=== PATIENT | male | born 1950 | race Caucasian/White ===

== ENCOUNTER → 2017-12-09 | Outpatient (CLI) | payer OTHER ==
[~2017-12-09] MED LIST: "\\\"BP MED\\\""; "\\\"CHOLESTEROL MED\\\""; ASMANEX HFA13 GM INH; ASPIRIN81 M1 PO; Accuneb 0.1.25 MG/3 INH; COLACE20 MG/5 ML PO; COREG3.125 MG PO; LIPITOR80 MG PO; PLAVIX75 MG PO; PROAIR HFA8.5 GM INH; TERAZOSIN5 MG PO; ZOCOR80 MG PO
--- NOTE | ~2017-12-09 | ST ---
[place], [place] EXERCISE STRESS TEST REPORT NAME: TICO ÁLVAREZ UNIT #: [id number] ROOM: DOCTOR: CHET CAMPBELL MD BIRTHDATE: [birth year] DOS: 12/09/2017 EXERCISE/PHARMACOLOGIC STRESS TEST REFERRING PHYSICIAN: MERCEDEZ Zambrano INDICATIONS: History of coronary artery disease, chest discomfort. PROCEDURE: The patient began the test by walking on a full Rahul protocol treadmill for 2 minutes and 48 seconds. At that point, he became very breathless and fatigued and could not continue. He had not achieved a diagnostic heart rate at that point and therefore the test was changed to a pharmacologic study. He was allowed to continue walking; however, the belt was leveled and slowed. He was then given a rapid infusion of regadenoson 0.4 mg intravenously, followed by a saline flush, 40 seconds later he was given radionuclide intravenously. His resting heart rate of 60 joshua to a peak of 87. The resting blood pressure of 120/64 joshua to 164/64. The patient became very breathless during exercise, but maintained normal oximetry with oxygen saturations between 94 and 95%. The patient's resting electrocardiogram showed sinus rhythm with probable biventricular hypertrophy. He did have increased voltage in the inferior leads with ST segment depression and T-wave inversions along with voltage criteria for left bundle-branch block and secondary ST changes at rest. No diagnostic changes occurred with the infusion. IMPRESSION: 1. Poor exercise capacity. 2. Well tolerated infusion of regadenoson. 3. Radionuclide administered. Please see the separate imaging report for further details of the patient's stress test results. CHET CAMPBELL MD CM:STRESS:EXERCISE STRESS TEST REPORT [id number] CHET CAMPBELL MD
== END | disposition home or self-care (01) ==
LOC: CARD 00:19
DX: I25.118 Atherosclerotic heart disease of native coronary artery with other forms of angina pectoris (principal)

== ENCOUNTER 2019-01-05 09:56 | Inpatient (IN) | payer OTHER ==
[2019-01-05] VITALS (8 sets, daily range): BP systolic 96–158; BP diastolic 48–65
[~2019-01-05] VITALS: Ht 172.7 cm; Wt 68.5 kg
--- NOTE | ~2019-01-05 | EKG ---
[place], [place] ELECTROCARDIOGRAM REPORT NAME: TICO ÁLVAREZ UNIT #: [id number] ROOM: 407 DOCTOR: EPIPHANY DRAFT REPORT BIRTHDATE: [birth year] [facility] Test Date: 2019-01-05 Test Time: 19:04:22 Pat Name: TICO ÁLVAREZ Department: Room: 407 2 Gender: M Electrician'S Helper: Pushpa Cowan : 1950 Requested By: COMPA LE Order Number: [id number] Reading MD: Compa Le MD Measurements Intervals [place] Rate: 61 P: 43 KS: 128 QRS: 10 QRSD: 91 T: 168 QT: 416 QTc: 419 Interpretive Statements Sinus rhythm Probable anteroseptal infarct, recent Lateral leads are also involved No previous ECG available for comparison Electronically Signed On 01-06-2019 15:32:41 PDT by Compa Le MD CM:EKGRPT:ELECTROCARDIOGRAM REPORT [id number] COMPA LE MD EPIPHANY DRAFT REPORT COMPA LE MD
--- NOTE | ~2019-01-05 | PR ---
[place], [place] PROGRESS NOTE [id number] UNIT #: [id number] ROOM: 407 DOCTOR: TERESA ALLAN MD BIRTHDATE: [birth year] DOS: 01/09/2019 CARDIOLOGY NOTE REASON FOR VISIT: Cardiomyopathy and coronary artery disease. CLINICAL HISTORY: The patient is feeling better. He would like to go home today. He just fit in with a LifeVest. Denies any chest pain or shortness of breath. No PND, no orthopnea, no palpitation, no dizziness, no syncope, no palpitations. No nausea, vomiting or diarrhea. No neurologic symptoms. No genitourinary symptoms. REVIEW OF SYSTEMS: Review of the 10 system negative except as mentioned above. RHYTHM STRIPS: The patient was in sinus rhythm. PHYSICAL EXAMINATION: VITAL SIGNS: Blood pressure 121/49, pulse 52, respiratory rate was 20, weight 60.4 kilos. GENERAL: Alert, comfortable, in no acute distress. EYES: Pupils are round and equal. No jaundice. HEAD AND NECK: Neck is supple. No distended neck veins, no carotid bruit. CHEST: Symmetrical, nontender. LUNGS: Clear to auscultation bilaterally. HEART: Regular rhythm, no S3, no palpable thrills. The patient is wearing a LifeVest. ABDOMEN: Benign, nontender. Bowel sounds normal. EXTREMITIES: Showed no edema. Distal pulses palpable. SKIN: Warm and dry. No cyanosis, no clubbing. RECTAL: Deferred. GENITOURINARY: Deferred. NEUROLOGIC: The patient is alert, oriented. No focal neurologic deficit. MEDICATIONS AND ALLERGIES: Reviewed. IMPRESSION: 1. Chest pain, stable, no further chest pain. The patient had a nonischemic stress test on 01/06/2019. 2. Coronary artery disease, status post left anterior descending stent in around 2013. 3. Left ventricular dysfunction, ejection fraction 30% by recent testing. 4. Tobacco smoking. 5. Sinus bradycardia. RECOMMENDATIONS: 1. Decrease his beta-blockers and watch his heart rate and blood pressures. 2. The patient is fit in a LifeVest today. 3. Risk factor modification, especially to quit smoking and low salt diet was discussed. 4. The patient would like to go home today and he can go home on current [place], [place] PROGRESS NOTE NAME: TICO ÁLVAREZ UNIT #: [id number] ROOM: 407 DOCTOR: JERRELL LOPEZ,TERESA BIRTHDATE: [birth year] medications and to follow up with Dr. Bolaños, one of our cardiologists in 1-2 weeks. Above treatment discussed with the patient and his family at bedside and all questions answered. He will be scheduled for outpatient viability test. TERESA ALLAN MD CM:PNTRANS [id number] TERESA ALLAN MD 01/10/19 0649 interface
--- NOTE | ~2019-01-05 | EKG ---
[place], [place] ELECTROCARDIOGRAM REPORT NAME: TICO ÁLVAREZ UNIT #: [id number] ROOM: 407 DOCTOR: DEBBIE DRAFT REPORT BIRTHDATE: [birth year] [facility] Test Date: 2019-01-05 Test Time: 09:59:40 Pat Name: TICO ÁLVAREZ Department: Room: 407 Gender: M Public Health Internship: : 1950 Requested By: KATIA HAINES Order Number: [id number] Reading MD: Stevan Bolaños MD Measurements Intervals [place] Rate: 45 P: 53 MN: 139 QRS: 4 QRSD: 88 T: 196 QT: 485 QTc: 420 Interpretive Statements Sinus bradycardia Anteroseptal infarct, age indeterminate Repol abnrm, severe global ischemia (LM/MVD) No previous ECG available for comparison Electronically Signed On 01-06-2019 15:27:16 PDT by Stevan Bolaños MD CM:EKGRPT:ELECTROCARDIOGRAM REPORT [id number] KATIA MASON DRAFT REPORT KATIA HAINES DO
--- NOTE | ~2019-01-05 | EKG ---
[place], [place] ELECTROCARDIOGRAM REPORT NAME: TICO ÁLVAREZ UNIT #: [id number] ROOM: 407 DOCTOR: DEBBIE DRAFT REPORT BIRTHDATE: [birth year] [facility] Test Date: 2019-01-05 Test Time: 12:46:55 Pat Name: TICO ÁLVAREZ Department: Room: 407 Gender: M Device Repair Technician: PRISCILLA : 1950 Requested By: KATIA HAINES Order Number: [id number] Reading MD: Stevna Bolaños MD Measurements Intervals [place] Rate: 53 P: 3 MA: 148 QRS: -16 QRSD: 90 T: 195 QT: 450 QTc: 423 Interpretive Statements Sinus rhythm Borderline left axis deviation lateral wall ischemia Repol abnrm suggests ischemia, diffuse leads Electronically Signed On 01-06-2019 15:29:29 PDT by Stevan Bolaños MD CM:EKGRPT:ELECTROCARDIOGRAM REPORT [id number] KATIA MASON DRAFT REPORT KATIA HAINES DO
--- NOTE | ~2019-01-05 | EKG ---
[place], [place] ELECTROCARDIOGRAM REPORT NAME: TICO ÁLVAREZ UNIT #: [id number] ROOM: 407 DOCTOR: DEBBIE DRAFT REPORT BIRTHDATE: [birth year] [facility] Test Date: 2019-01-05 Test Time: 17:37:18 Pat Name: TICO ÁLVAREZ Department: Room: 407 Gender: M Regional Service Manager: Pushpa Cowan : 1950 Requested By: KATIA HAINES Order Number: [id number] Reading MD: Stevan Bolaños MD Measurements Intervals [place] Rate: 60 P: 34 [place]: 127 QRS: 14 QRSD: 96 T: 191 QT: 429 QTc: 429 Interpretive Statements Sinus rhythm Anteroseptal [place] age undetermined Repol abnrm suggests ischemia, diffuse leads Minimal ST elevation, anterior leads No previous ECG available for comparison Electronically Signed On 01-06-2019 15:31:58 PDT by Stevan Bolaños MD CM:EKGRPT:ELECTROCARDIOGRAM REPORT [id number] KATIA MASON DRAFT REPORT KATIA HAINES DO
[2019-01-05 10:15] LABS: BASO # 0.1 10*3/uL (0.0-0.1); BASO % 0.5 % (0.0-1.0); EOS # 0.4 10*3/uL (0.0-0.4); EOS % 3.4 % (1.0-4.0); HEMATOCRIT 41.5 % (42.0-52.0); HEMOGLOBIN 13.7 g/dl (14.0-18.0); LYMPH # 4.4 10*3/uL (1.3-4.4); MEAN CELL VOLUME 96.3 fl (80.0-94.0); MEAN CORPUSCULAR HGB 31.8 pg (27.0-31.0); MEAN PLATELET VOLUME 11.5 fl (9.6-12.3); MONO # 1.1 10*3/uL (0.1-1.0); MONO % 9.7 % (3.0-9.0); NEUT # 5.3 10*3/uL (2.3-7.9); PLATELET COUNT AUTOMATED 262 10*3/uL (130-400); RED BLOOD COUNT 4.31 10*6/uL (4.50-5.90); RED CELL DISTRI WIDTH 13.2 % (0-14.5); WHITE BLOOD COUNT 11.2 10*3/uL (4.8-10.8)
[2019-01-05 10:53] LABS: ACT PARTIAL THROMBO TIME 22.1 SECONDS (20.8-31.5); INTERNATIONAL NORM RATIO 1.1 (2.0-3.5)
[2019-01-05 11:12] LABS: ALBUMIN 3.2 gm/dl (3.1-4.5); ALKALINE PHOSPHATASE 92 U/L (45-117); BUN 14 mg/dl (7-24); CHLORIDE 106 mmol/L (98-107); CREATININE 1.15 mg/dL (0.70-1.30); POTASSIUM 4.1 mmol/L (3.5-5.1); SGOT/AST 13 IU/L (3-35); SGPT/ALT 17 U/L (12-78); SODIUM 139 mmol/L (136-145); TOTAL PROTEIN 6.9 gm/dL (6.4-8.2)
[2019-01-05 11:14] LABS: TROPONIN I 0.023 ng/ml (<0.045)
[2019-01-05] MEDS ORDERED: VIAGRA100 MG PO (15:22)
[2019-01-05] MEDS ORDERED: VITAMIN D32000 UNI1 PO (15:24)
[2019-01-05] MEDS ORDERED: VITAMIN B-12100 MCG PO (15:25)
[2019-01-05] MEDS ORDERED: CIMETIDINE300 MG PO (15:26)
[2019-01-05] MEDS ORDERED: ALLOPURINOL100 MG PO (15:30)
[2019-01-05] MEDS ORDERED: LISINOPRIL5 MG PO (15:30)
[2019-01-06] VITALS: BP 107/44
[2019-01-06 06:09] LABS: CHOLESTEROL 126 mg/dL (<200); HDL CHOLESTEROL 40 mg/dl (40-60); LDL CHOLESTEROL 62 mg/dL (9-159); TRIGLYCERIDES 120 mg/dl (<150); VLDL CHOLESTEROL 24 mg/dL (6-40)
[2019-01-06 06:11] LABS: ALKALINE PHOSPHATASE 91 U/L (45-117); BUN 16 mg/dl (7-24); CHLORIDE 106 mmol/L (98-107); CHOLESTEROL 127 mg/dL (<200); CREATININE 1.05 mg/dL (0.70-1.30); FREE T4 0.79 ng/dl (0.76-1.46); HDL CHOLESTEROL 42 mg/dl (40-60); LDL CHOLESTEROL 61 mg/dL (9-159); PHOSPHOROUS 3.6 mg/dL (2.5-4.9); POTASSIUM 3.9 mmol/L (3.5-5.1); SGOT/AST 13 IU/L (3-35); SGPT/ALT 16 U/L (12-78); SODIUM 141 mmol/L (136-145); TOTAL PROTEIN 6.7 gm/dL (6.4-8.2); TRIGLYCERIDES 120 mg/dl (<150); VLDL CHOLESTEROL 24 mg/dL (6-40)
[2019-01-06 06:15] LABS: THYROID STIM HORMONE (HS) 0.765 uIU/ml (0.358-4.75)
[2019-01-06 06:37] LABS: BASO % 0.3 % (0.0-1.0); EOS # 0.3 10*3/uL (0.0-0.4); HEMATOCRIT 40.2 % (42.0-52.0); LYMPH # 2.8 10*3/uL (1.3-4.4); LYMPH % 29.9 % (27.0-41.0); MEAN CELL VOLUME 96.6 fl (80.0-94.0); MEAN CORPUSCULAR HGB 31.3 pg (27.0-31.0); MEAN CORPUSCULAR HGB CONC 32.3 g/dl (33.0-37.0); MEAN PLATELET VOLUME 11.2 fl (9.6-12.3); MONO # 0.9 10*3/uL (0.1-1.0); MONO % 10.1 % (3.0-9.0); NEUT # 5.2 10*3/uL (2.3-7.9); NEUT % 56.2 % (47.0-73.0); PLATELET COUNT AUTOMATED 186 10*3/uL (130-400); RED BLOOD COUNT 4.16 10*6/uL (4.50-5.90); RED CELL DISTRI WIDTH 13.2 % (0-14.5); WHITE BLOOD COUNT 9.3 10*3/uL (4.8-10.8)
[2019-01-06 06:58] LABS: ACT PARTIAL THROMBO TIME 25.6 SECONDS (20.8-31.5); INTERNATIONAL NORM RATIO 1.1 (2.0-3.5)
[2019-01-06 07:17] LABS: VITAMIN D, 25-HYDROXY 39.1 ng/mL (30-100)
[2019-01-06 08:00] VITALS: BP 118/60
[2019-01-06 12:00] VITALS: BP 132/73
[2019-01-06 16:00] VITALS: BP 132/66
[2019-01-06 20:00] VITALS: BP 143/64
[2019-01-07] VITALS: BP 164/70
[2019-01-07 06:10] LABS: BUN 14 mg/dl (7-24); CHLORIDE 107 mmol/L (98-107); CREATININE 1.07 mg/dL (0.70-1.30); POTASSIUM 4.5 mmol/L (3.5-5.1); SODIUM 140 mmol/L (136-145)
[2019-01-07 12:00] VITALS: BP 123/60
[2019-01-07 16:00] VITALS: BP 130/64
[2019-01-07 20:00] VITALS: BP 134/66
[2019-01-08] VITALS: BP 145/70
[2019-01-08 08:00] VITALS: BP 115/59
[2019-01-08 12:00] VITALS: BP 119/54
[2019-01-08 16:00] VITALS: BP 116/53
[2019-01-08 20:00] VITALS: BP 129/64
[2019-01-09] VITALS: BP 121/49
[2019-01-09 06:58] LABS: BASO # 0.1 10*3/uL (0.0-0.1); BASO % 0.6 % (0.0-1.0); EOS # 0.3 10*3/uL (0.0-0.4); EOS % 3.2 % (1.0-4.0); HEMATOCRIT 41.7 % (42.0-52.0); HEMOGLOBIN 13.4 g/dl (14.0-18.0); LYMPH # 3.3 10*3/uL (1.3-4.4); LYMPH % 38.1 % (27.0-41.0); MEAN CORPUSCULAR HGB 31.2 pg (27.0-31.0); MEAN CORPUSCULAR HGB CONC 32.1 g/dl (33.0-37.0); MEAN PLATELET VOLUME 11.2 fl (9.6-12.3); MONO % 11.2 % (3.0-9.0); NEUT # 4.1 10*3/uL (2.3-7.9); NEUT % 46.6 % (47.0-73.0); PLATELET COUNT AUTOMATED 204 10*3/uL (130-400); RED CELL DISTRI WIDTH 13.2 % (0-14.5); WHITE BLOOD COUNT 8.7 10*3/uL (4.8-10.8)
[2019-01-09 07:20] LABS: BUN 24 mg/dl (7-24); CHLORIDE 106 mmol/L (98-107); CREATININE 1.16 mg/dL (0.70-1.30); SODIUM 139 mmol/L (136-145)
[2019-01-09 08:00] VITALS: BP 118/56
[2019-01-09] MEDS ORDERED: CARVEDILOL6.25 MG PO (12:55)
[2019-01-09] MEDS ORDERED: LISINOPRIL10 M1 PO (12:55)
[2019-01-09] MEDS ORDERED: ALDACTONE25 MG PO (12:55)
== END 2019-01-09 13:50 | disposition home or self-care (01) | DRG 392 ==
LOC: ED 09:56 → EDHOLD 11:38 → 4E 11:38
PROVIDERS: Emergency Medicine; Family Medicine; Internal Medicine Cardiovascular Disease; ADMIT Internal Medicine
PROC: 3E073KZ Introduction of Other Diagnostic Substance into Coronary Artery, Percutaneous Approach (ICD-10-PCS; principal; 2019-01-06)
PROC: 4A02XM4 Measurement of Cardiac Total Activity, External Approach (ICD-10-PCS; principal; 2019-01-06)
DX: K21.9 Gastro-esophageal reflux disease without esophagitis (principal); E44.0 Moderate protein-calorie malnutrition; I50.20 Unspecified systolic (congestive) heart failure; N40.0 Benign prostatic hyperplasia without lower urinary tract symptoms; I25.10 Atherosclerotic heart disease of native coronary artery without angina pectoris; J44.9 Chronic obstructive pulmonary disease, unspecified; E78.5 Hyperlipidemia, unspecified; F17.210 Nicotine dependence, cigarettes, uncomplicated; D53.9 Nutritional anemia, unspecified; E11.65 Type 2 diabetes mellitus with hyperglycemia; I25.118 Atherosclerotic heart disease of native coronary artery with other forms of angina pectoris; I25.5 Ischemic cardiomyopathy; I11.0 Hypertensive heart disease with heart failure; I25.2 Old myocardial infarction; Z95.5 Presence of coronary angioplasty implant and graft; Z82.49 Family history of ischemic heart disease and other diseases of the circulatory system; Z88.0 Allergy status to penicillin; Z79.82 Long term (current) use of aspirin; Z71.6 Tobacco abuse counseling; Z68.22 Body mass index [BMI] 22.0-22.9, adult

== ENCOUNTER 2019-11-07 16:43 | Inpatient (IN) | payer OTHER, MEDICAID ==
[~2019-11-07] VITALS: Ht 172.7 cm; Wt 69.0 kg
[~2019-11-07 16:43] MED LIST changes: +ALDACTONE25 MG PO; +ALLOPURINOL100 MG PO; +CARVEDILOL6.25 MG PO; +CIMETIDINE300 MG PO; +LISINOPRIL10 M1 PO; +LISINOPRIL5 MG PO; +VIAGRA100 MG PO; +VITAMIN B-12100 MCG PO; +VITAMIN D32000 UNI1 PO
[2019-11-07 16:47] VITALS: BP 124/56
[2019-11-07 17:42] LABS: BASO % 0.4 % (0.0-1.0); EOS # 0.2 10*3/uL (0.0-0.4); EOS % 2.7 % (1.0-4.0); HEMATOCRIT 39.1 % (42.0-52.0); HEMOGLOBIN 13.2 g/dl (14.0-18.0); LYMPH # 2.4 10*3/uL (1.3-4.4); LYMPH % 35.6 % (27.0-41.0); MEAN CELL VOLUME 96.3 fl (80.0-94.0); MEAN CORPUSCULAR HGB 32.5 pg (27.0-31.0); MEAN CORPUSCULAR HGB CONC 33.8 g/dl (33.0-37.0); MEAN PLATELET VOLUME 11.1 fl (9.6-12.3); MONO # 0.8 10*3/uL (0.1-1.0); MONO % 11.3 % (3.0-9.0); NEUT # 3.4 10*3/uL (2.3-7.9); NEUT % 49.6 % (47.0-73.0); PLATELET COUNT AUTOMATED 203 10*3/uL (130-400); RED BLOOD COUNT 4.06 10*6/uL (4.50-5.90); RED CELL DISTRI WIDTH 12.9 % (0-14.5); WHITE BLOOD COUNT 6.8 10*3/uL (4.8-10.8)
[2019-11-07 17:52] LABS: ACT PARTIAL THROMBO TIME 25.9 SECONDS (20.0-32.1); INTERNATIONAL NORM RATIO 1.1 (2.0-3.5)
[2019-11-07 17:58] LABS: ALBUMIN 3.6 gm/dl (3.1-4.5); BUN 23 mg/dl (7-24); CHLORIDE 105 mmol/L (98-107); CREATININE 1.43 mg/dL (0.70-1.30); POTASSIUM 4.5 mmol/L (3.5-5.1); SGOT/AST 21 IU/L (3-35); SGPT/ALT 26 U/L (12-78); SODIUM 137 mmol/L (136-145); TOTAL PROTEIN 7.2 gm/dL (6.4-8.2)
[2019-11-07 18:01] LABS: ALKALINE PHOSPHATASE 89 U/L (45-117)
[2019-11-07 18:04] LABS: TROPONIN I < 0.015 ng/ml (<0.045)
[2019-11-07 20:00] VITALS: BP 137/60
[2019-11-07 22:18] VITALS: BP 113/62
--- NOTE | 2019-11-07 23:15 | NUR ---
A 69, admitted to 5E, under the services of JESSICA Rome DO with a diagnosis of LESTER, DIZZINESS, WEAKNESS, PNEUMONIA. Chief complaint is DIZZINESS, LIGHTHEADED, HEADACHE. Patient arrived via stretcher from ER. Monitor applied. Initial assessment completed. Vital signs taken and recorded. JESSICA ROME DO notified of admission to the unit. Orders received. See assessment for past medical history, medications and allergies. Patient and/or family oriented to unit. Clothing/patient valuable form completed. MICHAEL JORDAN
[2019-11-07 23:35] VITALS: BP 137/60
--- NOTE | 2019-11-08 | NUR ---
Pt started on flutter valve. Encouraged self use for secretions.
--- NOTE | 2019-11-08 00:08 | NUR ---
MED REC UPDATED PER PT. STATES THAT HE IS UNSURE ABOUT ALDACTONE AND CIMETIDINE BUT HAS LIST AND SHE CAN BRING IT TOMORROW.
--- NOTE | 2019-11-08 00:33 | NUR ---
DR MARLEY NOTIFIED OF ORTHOSTATIC BP READING. MED REC TO BE COMPLETED TOMORROW WITH PT'S LIST.
--- NOTE | 2019-11-08 02:34 | NUR ---
DR MARLEY AWARE OF PT WANTING ALL LIFE SAVING MEASURES. TO DISCUSS WITH PT IN THE MORNING.
[2019-11-08 06:13] LABS: BASO % 0.4 % (0.0-1.0); EOS # 0.2 10*3/uL (0.0-0.4); EOS % 2.4 % (1.0-4.0); HEMATOCRIT 36.4 % (42.0-52.0); HEMOGLOBIN 12.1 g/dl (14.0-18.0); LYMPH # 2.8 10*3/uL (1.3-4.4); LYMPH % 38.9 % (27.0-41.0); MEAN CELL VOLUME 98.1 fl (80.0-94.0); MEAN CORPUSCULAR HGB 32.6 pg (27.0-31.0); MEAN CORPUSCULAR HGB CONC 33.2 g/dl (33.0-37.0); MEAN PLATELET VOLUME 10.7 fl (9.6-12.3); MONO # 0.9 10*3/uL (0.1-1.0); NEUT # 3.3 10*3/uL (2.3-7.9); PLATELET COUNT AUTOMATED 172 10*3/uL (130-400); RED BLOOD COUNT 3.71 10*6/uL (4.50-5.90); RED CELL DISTRI WIDTH 12.8 % (0-14.5); WHITE BLOOD COUNT 7.2 10*3/uL (4.8-10.8)
[2019-11-08 06:15] LABS: BUN 20 mg/dl (7-24); CHLORIDE 112 mmol/L (98-107); CHOLESTEROL 96 mg/dL (<200); CREATININE 1.07 mg/dL (0.70-1.30); FREE T4 0.99 ng/dl (0.76-1.46); HDL CHOLESTEROL 38 mg/dl (40-60); LDL CHOLESTEROL 41 mg/dL (9-159); PHOSPHOROUS 3.4 mg/dL (2.5-4.9); POTASSIUM 4.5 mmol/L (3.5-5.1); SODIUM 142 mmol/L (136-145); TRIGLYCERIDES 86 mg/dl (<150); VLDL CHOLESTEROL 17 mg/dL (6-40)
--- NOTE | 2019-11-08 07:30 | NUR ---
TOOK OVER CARE OF PT AT THIS TIME.PT RESTING IN BED. NO S/S OF DISTRESS. RESPIRATIONS EASY AND UNLABORED ON ROOM AIR. CALL LIGHT IN REACH.
[2019-11-08 07:46] LABS: VITAMIN D, 25-HYDROXY 64.1 ng/mL (30-100)
[2019-11-08 12:00] VITALS: BP 125/51
--- NOTE | 2019-11-08 13:00 | NUR ---
ATTEMPTED TO UPDATE PT MED LIST VIA [facility]. [facility] STATES THAT THEY DO NOT HAVE RECORDS OF PATIENT'S MEDICATIONS. WILL ASK PATIENT IF THERE IS ANOTHER WAY TO UPDATE HIS MEDICATION LIST.
--- NOTE | 2019-11-08 14:27 | NUR ---
Coordinate Measuring Machine Programmer in to talk to patient. Patient states lives at HOME with . There are 8 steps in the home. Physician: JENARO BLAIR Pharmacy: [facility] Home health services: NONE Patient's level of ADLs: INDEPENDENT Patient has working utilities: YES DME: NONE Follow-up physician's appointment after d/c: WILL BE MADE BY HOSPITALIST NURSE DIRECTOR ON DISCHARGE Does patient want to access PORTAL?: NO Discharge plan PT LIVES AT HOME WITH HIS AND IS INDEPENDENT IN HIS CARE. STATES HE WILL RETURN HOME ON DISCHARGE WITH NO NEEDS. WILL CONTINUE TO FOLLOW. WILL HAVE A RIDE HOME. SEGUNDO MOSES
[2019-11-08 16:00] VITALS: BP 145/66
--- NOTE | 2019-11-08 16:13 | NUR ---
PT STATES THAT HIS IS GOING TO BRING HIS MEDICATION LIST IN. WILL UPDATE MED LIST AT THAT TIME.
[2019-11-08] MEDS ORDERED: VENTOLIN 02.5 MG/3 M INH (17:48)
[2019-11-08] MEDS ORDERED: ACETAMINOPHEN325 M2 PO (17:50)
--- NOTE | 2019-11-08 17:50 | NUR ---
PT MED REC UPDATED VIA PAPERWORK PROVIDED BY . PAPERWORK IN CHART, FROM LAST APPOINTMENT AT [facility] IN OCTOBER 2019.
--- NOTE | 2019-11-08 17:52 | NUR ---
PHYSICIAN NOTIFIED THAT MED REC IS UPDATED.
[2019-11-08 20:00] VITALS: BP 142/61
[2019-11-09] VITALS: BP 143/59
--- NOTE | 2019-11-09 01:44 | NUR ---
24 HOUR CHART CHECK COMPLETE.
[2019-11-09 08:00] VITALS: BP 144/54; BP 152/66
[2019-11-09] MEDS ORDERED: LEVAQUIN750 M1 PO (11:09)
--- NOTE | 2019-11-09 12:49 | NUR ---
PT DISCHARGED HOME AT THIS TIME. HEPLOCK AND DIRECTOR OF CONSUMER AFFAIRS DC'D. DISCHARGE INSTRUCTIONS REVIEWED.
--- NOTE | 2019-11-09 13:03 | NUR ---
PT CONTINUES TO DENY NEEDS ON DISCHARGE. PLANS TO RETURN HOME WHEM MEDICALLY STABLE.
== END 2019-11-09 12:49 | disposition home or self-care (01) | DRG 682 ==
LOC: ED 16:43 → EDHOLD 20:43 → 5E 20:43
PROVIDERS: Emergency Medicine; Internal Medicine; ADMIT Internal Medicine
DX: N17.0 Acute kidney failure with tubular necrosis (principal); J18.9 Pneumonia, unspecified organism; I50.20 Unspecified systolic (congestive) heart failure; J44.0 Chronic obstructive pulmonary disease with (acute) lower respiratory infection; I95.1 Orthostatic hypotension; D53.9 Nutritional anemia, unspecified; R73.9 Hyperglycemia, unspecified; E78.5 Hyperlipidemia, unspecified; I25.10 Atherosclerotic heart disease of native coronary artery without angina pectoris; I11.0 Hypertensive heart disease with heart failure; F17.210 Nicotine dependence, cigarettes, uncomplicated; N40.0 Benign prostatic hyperplasia without lower urinary tract symptoms; E55.9 Vitamin D deficiency, unspecified; K21.9 Gastro-esophageal reflux disease without esophagitis; E53.8 Deficiency of other specified B group vitamins; M1A.9XX0 Chronic gout, unspecified, without tophus (tophi); Z71.6 Tobacco abuse counseling; Z95.5 Presence of coronary angioplasty implant and graft; Z95.0 Presence of cardiac pacemaker; I25.2 Old myocardial infarction; Z82.49 Family history of ischemic heart disease and other diseases of the circulatory system; Z88.0 Allergy status to penicillin; Z79.82 Long term (current) use of aspirin; Z79.899 Other long term (current) drug therapy; Z86.73 Personal history of transient ischemic attack (TIA), and cerebral infarction without residual deficits

== ENCOUNTER → 2021-04-14 | Day surgery (SDC) | payer OTHER ==
[~2021-04-14] VITALS: Ht 172.7 cm; Wt 65.3 kg
[~2021-04-14] MED LIST changes: +ACETAMINOPHEN325 M2 PO; +LEVAQUIN750 M1 PO; +VENTOLIN 02.5 MG/3 M INH; +ZANTAC-360 (FAM20 MG PO
[2021-04-14 08:16] VITALS: BP 110/59
[2021-04-14 09:02] VITALS: BP 113/58
[2021-04-14 09:17] VITALS: BP 121/64
== END | disposition home or self-care (01) ==
LOC: SDC 04-10 10:15
PROVIDERS: ATTEND Surgery
DX: Z12.11 Encounter for screening for malignant neoplasm of colon (principal); D12.2 Benign neoplasm of ascending colon; D12.5 Benign neoplasm of sigmoid colon; K57.30 Diverticulosis of large intestine without perforation or abscess without bleeding; Z86.010 Personal history of colon polyps; J44.9 Chronic obstructive pulmonary disease, unspecified; Z95.5 Presence of coronary angioplasty implant and graft; I25.2 Old myocardial infarction; I11.0 Hypertensive heart disease with heart failure; I50.9 Heart failure, unspecified; I48.91 Unspecified atrial fibrillation; Z86.73 Personal history of transient ischemic attack (TIA), and cerebral infarction without residual deficits; E78.00 Pure hypercholesterolemia, unspecified; Z95.0 Presence of cardiac pacemaker; F17.210 Nicotine dependence, cigarettes, uncomplicated; Z20.822 Contact with and (suspected) exposure to COVID-19; Z79.899 Other long term (current) drug therapy; Z98.890 Other specified postprocedural states

== ENCOUNTER → 2022-02-25 | Outpatient (CLI) | payer OTHER | END | disposition home or self-care (01) | LOC: US 09:00 | PROVIDERS: ATTEND Physician Assistant | DX: Z13.6 Encounter for screening for cardiovascular disorders (principal) ==

== ENCOUNTER → 2023-01-21 | Outpatient (CLI) | payer OTHER ==
[~2023-01-21] MED LIST changes: +COLACE100 MG PO; +ONDANSETRON HYDR4 M1 PO; +PERCOCET 5-3251 EACH PO
== END | disposition home or self-care (01) ==
LOC: CT 09:52
PROVIDERS: ATTEND Physician Assistant
DX: J43.9 Emphysema, unspecified (principal); R91.8 Other nonspecific abnormal finding of lung field; I70.0 Atherosclerosis of aorta; R59.0 Localized enlarged lymph nodes; F17.210 Nicotine dependence, cigarettes, uncomplicated

== ENCOUNTER → 2024-03-09 | Outpatient (CLI) | payer OTHER | END | disposition home or self-care (01) | LOC: CT 14:00 | PROVIDERS: ATTEND Physician Assistant | DX: R91.1 Solitary pulmonary nodule (principal); J43.2 Centrilobular emphysema; I25.10 Atherosclerotic heart disease of native coronary artery without angina pectoris; F17.210 Nicotine dependence, cigarettes, uncomplicated ==

== ENCOUNTER 2024-03-12 16:25 | Emergency (ER) | payer OTHER ==
[~2024-03-12] VITALS: Ht 172.7 cm; Wt 60.3 kg
[2024-03-12 16:50] LABS: BASO % 0.4 % (0.0-1.0); EOS # 0.2 10*3/uL (0.0-0.4); EOS % 3.4 % (1.0-4.0); HEMATOCRIT 40.5 % (42.0-52.0); LYMPH # 2.1 10*3/uL (1.3-4.4); LYMPH % 36.7 % (27.0-41.0); MEAN CELL VOLUME 100.7 fl (80.0-94.0); MEAN CORPUSCULAR HGB 33.6 pg (27.0-31.0); MEAN CORPUSCULAR HGB CONC 33.3 g/dl (33.0-37.0); MEAN PLATELET VOLUME 10.6 fl (9.6-12.3); MONO # 0.7 10*3/uL (0.1-1.0); MONO % 12.6 % (3.0-9.0); NEUT # 2.6 10*3/uL (2.3-7.9); NEUT % 46.5 % (47.0-73.0); PLATELET COUNT AUTOMATED 152 10*3/uL (130-400); RED BLOOD COUNT 4.02 10*6/uL (4.50-5.90); RED CELL DISTRI WIDTH 12.2 % (0-14.5); WHITE BLOOD COUNT 5.6 10*3/uL (4.8-10.8)
[2024-03-12 17:01] LABS: ACT PARTIAL THROMBO TIME 27.9 SECONDS (20.0-32.1)
[2024-03-12 17:11] LABS: ALKALINE PHOSPHATASE 67 U/L (46-116); BUN 15 mg/dl (9-23); CHLORIDE 107 mmol/L (98-107); POTASSIUM 4.3 mmol/L (3.4-5.1); SGPT/ALT 8 U/L (5-49); TOTAL PROTEIN 6.6 gm/dL (6.0-8.0)
== END 2024-03-12 20:47 | disposition home or self-care (01) ==
LOC: ED 16:25
PROVIDERS: Physician Assistant Medical
DX: R07.89 Other chest pain (principal); M54.9 Dorsalgia, unspecified; I11.0 Hypertensive heart disease with heart failure; I50.9 Heart failure, unspecified; J44.9 Chronic obstructive pulmonary disease, unspecified; E78.5 Hyperlipidemia, unspecified; I25.10 Atherosclerotic heart disease of native coronary artery without angina pectoris; R42 Dizziness and giddiness; Z86.73 Personal history of transient ischemic attack (TIA), and cerebral infarction without residual deficits; I25.2 Old myocardial infarction; K21.9 Gastro-esophageal reflux disease without esophagitis; Z72.0 Tobacco use; Z88.0 Allergy status to penicillin; Z98.890 Other specified postprocedural states

== ENCOUNTER 2024-03-28 11:46 | Emergency (ER) | payer OTHER ==
[~2024-03-28] VITALS: Ht 172.7 cm; Wt 60.3 kg
== END 2024-03-28 19:38 | disposition home or self-care (01) ==
LOC: ED 11:46
DX: S73.101A Unspecified sprain of right hip, initial encounter (principal); M79.651 Pain in right thigh; I10 Essential (primary) hypertension; I25.10 Atherosclerotic heart disease of native coronary artery without angina pectoris; K21.9 Gastro-esophageal reflux disease without esophagitis; F17.200 Nicotine dependence, unspecified, uncomplicated; Z88.0 Allergy status to penicillin; Z79.899 Other long term (current) drug therapy; Z79.82 Long term (current) use of aspirin; Z95.5 Presence of coronary angioplasty implant and graft; Z95.0 Presence of cardiac pacemaker; W01.0XXA Fall on same level from slipping, tripping and stumbling without subsequent striking against object, initial encounter; Y93.89 Activity, other specified; Y92.812 Truck as the place of occurrence of the external cause; Y99.8 Other external cause status

== ENCOUNTER 2025-04-06 13:16 | Emergency (ER) | payer OTHER ==
[~2025-04-06] VITALS: Ht 172.7 cm; Wt 62.1 kg
[2025-04-06] MEDS ORDERED: SODIUM CHLORIDE 0.9% 1,000 ML IV ONE (13:50)
[2025-04-06 14:10] LABS: BASO # 0.0 10*3/uL (0.0-0.1); BASO % 0.4 % (0.0-1.0); EOS # 0.2 10*3/uL (0.0-0.4); EOS % 3.6 % (1.0-4.0); MEAN CELL VOLUME 95.8 fl (80.0-94.0); MEAN CORPUSCULAR HGB 31.8 pg (27.0-31.0); MEAN PLATELET VOLUME 10.0 fl (9.6-12.3); MONO # 0.7 10*3/uL (0.1-1.0); MONO % 11.7 % (3.0-9.0); NEUT # 2.7 10*3/uL (2.3-7.9); NEUT % 47.2 % (47.0-73.0); NUCLEATED RED BLOOD CELL 0.0 % (0.0-0.0); NUCLEATED RED BLOOD CELL 0.0 10*3/uL (0.0-0.0); PLATELET COUNT AUTOMATED 163 10*3/uL (130-400); RED CELL DISTRI WIDTH 11.9 % (0-14.5)
[2025-04-06] MEDS ORDERED: ASPIRIN, CHEWABLE 81 MG TAB PO ONE (14:15)
[2025-04-06 14:20] LABS: ACT PARTIAL THROMBO TIME 27.9 SECONDS (20.0-32.1)
[2025-04-06] MEDS ORDERED: ALLOPURINOL100 MG PO (14:20)
[2025-04-06] MEDS ORDERED: TAMSULOSIN HCL0.4 MG PO (14:25)
[2025-04-06] MEDS ORDERED: ASMANEX220 MC4 INH (14:26)
[2025-04-06] MEDS ORDERED: ZOLOFT25 MG PO (14:27)
[2025-04-06 14:31] LABS: BUN 14 mg/dl (9-23); SGPT/ALT 15 U/L (5-49)
[2025-04-06] MEDS ORDERED: [UNRECOGNIZED DRUG - OTHER] PO (14:31)
[2025-04-06] MEDS ORDERED: FINASTERIDE5 M1 PO (14:34)
[2025-04-06] MEDS ORDERED: FIBER LAX625 MG PO (14:35)
[2025-04-06] MEDS ORDERED: ALDACTONE25 M1 PO (14:39)
[2025-04-06 15:22] LABS: BILIRUBIN Negative (Negative); BLOOD Negative (Negative); CLARITY Clear (Clear); COLOR Yellow (Yellow); KETONE Negative (Negative); LEUKO ESTERASE 2+ (Negative); NITRITE Negative (Negative); PH 6.5 (4.5-8.0); SPECIFIC GRAVITY 1.010 (1.001-1.030); UROBILINOGEN 0.2 E.U./dl (0.0-1.0)
[2025-04-06 15:30] LABS: BACTERIA 3+; EPITHELIAL CELLS 0-2; RBC 0-2 rbc/hpf (0-2); WBC 21-30 wbc/hpf (0-5)
[2025-04-06] MEDS ORDERED: Ondansetron Hydrochloride 4 MG/2 ML VIAL IV ONE (16:00)
== END 2025-04-06 20:24 | disposition short-term general hospital (02) ==
LOC: ED 13:16
PROVIDERS: Internal Medicine
DX: I21.4 Non-ST elevation (NSTEMI) myocardial infarction (principal); I11.0 Hypertensive heart disease with heart failure; I50.9 Heart failure, unspecified; J44.9 Chronic obstructive pulmonary disease, unspecified; E78.00 Pure hypercholesterolemia, unspecified; K21.9 Gastro-esophageal reflux disease without esophagitis; F17.200 Nicotine dependence, unspecified, uncomplicated; Z79.899 Other long term (current) drug therapy; Z88.0 Allergy status to penicillin; Z98.890 Other specified postprocedural states